=== PATIENT | male | born 1995 | race Caucasian/White ===

== ENCOUNTER 2019-04-16 18:53 | Emergency (ER) | payer BC ==
[2019-04-16] MEDS ORDERED: Bacitracin Zinc 1 Packet ONE (19:19)
== END 2019-04-16 19:40 | disposition home or self-care (01) ==
LOC: MADERS 18:53
DX: S61.250A Open bite of right index finger without damage to nail, initial encounter (principal); W54.0XXA Bitten by dog, initial encounter
CPT/HCPCS: 99283